=== PATIENT | female | born 1990 | race African-American/Black ===

== ENCOUNTER 2024-12-09 08:03 | Emergency (ER) | payer SELFPAY ==
[2024-12-09] MEDS ORDERED: Ondansetron PF 4 MG/2 ML Vial ONE (08:49)
[2024-12-09 09:20] LABS: #Basophils Less than 0.03 10x3/uL (0.0-0.2); %Basophils 0.1 % (0.0-1.0); %Eosinophils 1.2 % (0.0-10.0); %Lymphocytes 20.6 % (21.0-51.0); %Neutrophils 72.9 % (42.0-75.0); Hematocrit 38.4 % (36.0-47.0); Hemoglobin 13.3 g/dL (12.0-16.0); Mean Corpuscular HGB CONC 34.6 g/dL (32.0-36.0); Mean Corpuscular Hemoglobin 27.4 pg (27.0-31.0); Platelet Count 335 10x3/uL (130-400); RBC Distribution Width 13.6 % (11.5-14.5); Red Blood Cell (RBC) Count 4.86 mill/uL (4.20-5.40)
[2024-12-09 09:33] LABS: BHCG - Serum Negative (NEGATIVE); Pregs Control Background? CLEAR/WHITE (CLR/WHITE); Pregs Control Bar Appear? YES (CONTROL BAR)
[2024-12-09] MEDS ORDERED: Ketorolac Tromethamine 30 MG (1 mL) VIAL ONE (09:38)
[2024-12-09 09:39] LABS: ALT (SGPT) 12 U/L (Less than 34); AST (SGOT) 26 U/L (11-34); Alkaline Phosphatase 66 U/L (40-110); Anion Gap 12 mmol/L (10-20); BUN (Urea Nitrogen) 9 mg/dL (7.0-18.7); Bilirubin, Total 0.3 mg/dL (0.3-1.2); Calc. Creatinine Clearance 0 mL/min (70-130); Calcium 8.6 mg/dL (7.8-10.44); Carbon Dioxide 23 mmol/L (22-29); Chloride 109 mmol/L (98-107); Estimated GFR 111; Globulin 3.9 g/dL (2.4-3.5); Glucose 92 mg/dL (70-105); Lipase 31 U/L (8-78); Potassium 3.4 mmol/L (3.5-5.1); Protein, Total 7.9 g/dL (6.0-8.3); Sodium 141 mmol/L (136-145)
[2024-12-09] MEDS ORDERED: HYDROmorphone 0.5 MG/0.5 ML SYRINGE ONE (10:19)
== END 2024-12-09 10:57 | disposition home or self-care (01) ==
LOC: ERS 08:03
DX: R11.2 Nausea with vomiting, unspecified (principal); Z55.6 Problems related to health literacy; Z75.3 Unavailability and inaccessibility of health-care facilities
CPT/HCPCS: 80053; 83690; 84703; 85025; 87428; 96374; 96375; J1171; J1885; J2405